=== PATIENT | male | born 1980 | race Caucasian/White ===

== ENCOUNTER 2023-11-24 17:12 | Emergency (ER) | payer OTHER ==
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
[2023-11-25 02:26] LABS: Amphetamine Screen,Urine Not Detected (NotDetected); Barbiturate Screen,Urine Not Detected (NotDetected); Benzodiazepines Screen,Urine Not Detected (NotDetected); Cocaine Screen,Urine Not Detected (NotDetected); Methadone Screen, Urine Not Detected (NotDetected); Opiate Screen,Urine Not Detected (NotDetected); Oxycodone Screen, Urine Not Detected (NotDetected); Phencyclidine Screen,Urine Not Detected (NotDetected); Tricyclic Antidepressant,Urine Not Detected (NotDetected); Urn Cannabinoid Scrn Not Detected (NotDetected)
[2023-11-25 06:48] LABS: ALT 14 U/L (4-49); AST 18 U/L (17-59); African American GFR (CKD) >90 (>60 ml/min/1.73 sqM); Albumin 3.6 g/dL (3.5-5.0); Alkaline Phosphatase 78 U/L (38-126); Anion Gap 5 mmol/L; Blood Urea Nitrogen 16 mg/dL (9-20); Calcium 8.9 mg/dL (8.4-10.2); Carbon Dioxide 29 mmol/L (22-30); Chloride 103 mmol/L (98-107); Glucose 92 mg/dL (74-99); Non-African American GFR(CKD) >90 (>60 ml/min/1.73 sqM); Potassium 4.3 mmol/L (3.5-5.1); Sodium 137 mmol/L (137-145); Total Bilirubin 0.3 mg/dL (0.2-1.3); Total Protein 6.2 g/dL (6.3-8.2)
[2023-11-25 06:54] LABS: Basophils # (A) 0.1 k/uL (0-0.2); Basophils % (A) 0 %; Eosinophils # (A) 0.4 k/uL (0-0.7); Eosinophils % (A) 3 %; HGB 11.5 gm/dL (13.0-17.5); Lymphocytes # (A) 2.6 k/uL (1.0-4.8); Lymphocytes % (A) 21 %; MCH 26.2 pg (25.0-35.0); MCV 81.8 fL (80.0-100.0); Mean Platelet Volume 8.5; Monocytes # (A) 0.7 k/uL (0-1.0); Monocytes % (A) 6 %; Neutrophils # (A) 8.6 k/uL (1.3-7.7); Neutrophils % (A) 68 %; Platelet Count 268 k/uL (150-450); RDW 14.1 % (11.5-15.5); WBC 12.6 k/uL (3.8-10.6)
[2023-11-25] MEDS: NON FORMULARY DRUG (Buprenorphine Hcl [Subutex] 8 MG Tab.Subl) SUBLINGUAL SCH (09:12)
[2023-11-25] MEDS: ONDANSETRON ODT 4 MG TAB PO STA (09:16)
[2023-11-25] MEDS: NICOTINE 21MG/24HR PATCH TRANSDERM STA (13:41)
[2023-11-25] MEDS: ZIPRASIDONE 20 MG VIAL IM STA (15:00)
[2023-11-25 16:09] VITALS: BP 118/80; PULSE 88; RESP 18; TEMP 97.8
[2023-11-25] MEDS ORDERED: MIRTAZAPINE 45 MG TABLET PO SCH (21:00)
[2023-11-25] MEDS ORDERED: OLANZapine 10 MG TAB PO SCH (21:00)
[2023-11-25] MEDS ORDERED: PRAZOSIN 1 MG CAP PO SCH (21:00)
== END 2023-11-25 16:10 ==
LOC: EC 17:12
DX: Z13.39 Encounter for screening examination for other mental health and behavioral disorders (principal); F22 Delusional disorders; R45.851 Suicidal ideations; F17.200 Nicotine dependence, unspecified, uncomplicated; F12.90 Cannabis use, unspecified, uncomplicated; Z11.52 Encounter for screening for COVID-19
CPT/HCPCS: 99283; 82075; 36415; 80053; 85025; 80306; 87636; 99285; 96372; S4990; J3486